=== PATIENT | male | born 1955 | race Caucasian/White ===

== ENCOUNTER → 2017-03-15 | Outpatient (REF) ==
[~2017-03-15] MED LIST: CIPRO 500MG TA500 MG PO; FISH OIL1 IU PO; FLAXSEED OIL1 CAP PO; FOLIC ACID PO; MVI PO; NO HOME MEDICATIONS; NORCO PO; VITAMIN C500 MG PO; VITAMIN E-400200 IU PO
== END ==
LOC: WSOH 17:45
DX: Z02.89 Encounter for other administrative examinations (principal)

== ENCOUNTER 2018-03-11 09:19 | Day surgery (SDC) | payer OTHER ==
[2007-03-09 06:21] VITALS: BP 122/89
[~2018-03-11] VITALS: Ht 182.9 cm; Wt 71.0 kg
[2018-03-11 10:32] VITALS: BP 131/89; PULSE 87; TEMP 98.6
[2018-03-11] MEDS ORDERED: VITAMIND3 5000 PO (10:41)
[2018-03-11 11:45] VITALS: BP 116/90; PULSE 80; TEMP 98.6
[2018-03-11 12:00] VITALS: BP 115/82; PULSE 80
[2018-03-11 12:15] VITALS: BP 112/76; PULSE 83
[2018-03-11 13:46] VITALS: BP 116/90; PULSE 84
== END 2018-03-11 12:30 | disposition home or self-care (01) ==
LOC: SDCO 09:19
DX: Z12.11 Encounter for screening for malignant neoplasm of colon (principal); K21.0 Gastro-esophageal reflux disease with esophagitis; G61.0 Guillain-Barre syndrome; Z86.010 Personal history of colon polyps; Z85.46 Personal history of malignant neoplasm of prostate; Z80.0 Family history of malignant neoplasm of digestive organs
CPT/HCPCS: J2250; J2405; J3010; J7030

== ENCOUNTER → 2020-03-14 | Outpatient (CLI) | payer OTHER ==
[~2020-03-14] MED LIST changes: +VITAMIND3 5000 PO
== END ==
LOC: COL.RAD 07:08
DX: M48.061 Spinal stenosis, lumbar region without neurogenic claudication (principal); M41.86 Other forms of scoliosis, lumbar region; M51.36 Other intervertebral disc degeneration, lumbar region

== ENCOUNTER 2021-02-10 20:45 | Emergency (ER) | payer OTHER, BC ==
[~2021-02-10] VITALS: Ht 182.9 cm; Wt 73.6 kg
[~2021-02-10 20:45] MED LIST changes: +MASON NATURAL2000 IU PO; -VITAMIND3 5000 PO
[2021-02-10 20:49] VITALS: TEMP 98.2
[2021-02-10] MEDS ORDERED: COZAAR 25MG25 MG/TAB PO (20:54)
[2021-02-10] MEDS ORDERED: MEGACE20 MG PO (20:55)
[2021-02-10 21:08] LABS: BASO % 0.5 % (0.0-2.0); EOS # 0.1 (0.0-0.7); EOS % 1.1 % (0-4.0); GRAN # 3.4 (1.4-6.5); GRAN % 58.9 % (42.2-75.2); HEMATOCRIT 38.8 % (42.0-52.0); HEMOGLOBIN 12.7 g/dl (13.5-18.0); LYMPH # 1.9 (1.2-3.4); LYMPH % 32.9 % (20.0-51.0); MEAN CELL VOLUME 94 fl (80.0-100.0); MEAN CORPUSCULAR HEMOGLOBIN 31 pg (27.0-31.0); MEAN CORPUSCULAR HGB CONC 33 g/dl (33.0-37.0); MEAN PLATELET VOLUME 10.1 fl (7.4-10.4); MONO # 0.4 (0.1-0.6); MONO % 6.2 % (1.7-9.3); PLATELET COUNT 273 K/mm3 (130-400); RED BLOOD COUNT 4.15 M/mm3 (4.20-5.60); REDCELL DISTRIBUTION WIDTH-CV 13.2 % (11.5-14.5)
[2021-02-10 21:19] LABS: ALANINE AMINOTRANSFERASE 40 U/L (4-49); ALBUMIN 4.1 gm/dL (3.5-5.0); ALKALINE PHOSPHATASE 59 U/L (50-136); ANION GAP 10 mmol/L (7-16); AST,SGOT 70 U/L (15-37); BILIRUBIN,TOTAL 0.3 mg/dL (0.0-1.0); BLOOD UREA NITROGEN 11 mg/dL (9-20); CALCIUM 9.4 mg/dL (8.4-10.2); CARBON DIOXIDE 20 mmol/L (22-30); CHLORIDE 109 mmol/L (98-107); CREATININE, serum 0.94 (0.66-1.25); GLUCOSE 126 mg/dL (74-106); POTASSIUM 3.8 mmol/L (3.4-5.0); SODIUM 139 mmol/L (137-145); TOTAL PROTEIN 7.2 gm/dL (6.4-8.2)
[2021-02-10 21:41] LABS: TROPONIN-I < 0.012 ng/mL (0.000-0.035)
[2021-02-10 23:14] VITALS: BP 148/80; PULSE 94
== END 2021-02-10 23:14 | disposition home or self-care (01) ==
LOC: COL.ER 20:45
PROVIDERS: Emergency Medicine Emergency Medical Services
DX: I95.9 Hypotension, unspecified (principal); R00.0 Tachycardia, unspecified
CPT/HCPCS: J7030

== ENCOUNTER 2021-03-07 05:44 | Day surgery (SDC) | payer OTHER ==
[2007-03-09 06:21] VITALS: BP 122/89
[~2021-03-07] VITALS: Ht 182.9 cm; Wt 74.4 kg
[~2021-03-07 05:44] MED LIST changes: +COZAAR 25MG25 MG/TAB PO; +MEGACE20 MG PO
[2021-03-07] MEDS ORDERED: TOPROL XL 25MG25 MG PO (06:06)
[2021-03-07 06:07] VITALS: BP 128/89; PULSE 80; TEMP 97.7
[2021-03-07 07:35] VITALS: BP 135/87; PULSE 66; TEMP 97.9
--- NOTE | 2021-03-07 07:35 | NUR ---
PATIENT TRANSPORTED PER CART FROM GI SUITE TO BAY 1 ACCOMPANIED BY TRANG RN. PATIENT AMBULATED FROM CART TO CHAIR WITH STEADY GAIT. WITH 1 ASSIST. MONITORS APPLIED. VSS ON ROOM AIR. PATIENT TALKING WITH STAFF. 0750 VSS ON ROOM AIR. PATIENT TOLERATES FOOD AND DRINK WITHOUT PROBLEMS. PATIENT TALKS WITH STAFF.
[2021-03-07 07:50] VITALS: BP 145/90; PULSE 60
[2021-03-07 08:05] VITALS: BP 141/83; PULSE 73
--- NOTE | 2021-03-07 08:05 | NUR ---
VSS ON ROOM AIR. IV SITE DC'D WITH CATHETER TIP INTACT. PRESSURE AND BANDAGE APPLIED. PATIENT DENIES NAUSEA AND DISCOMFORT. 808 DISCHARGE INSTRUCTIONS REVIEWED. QUESTIONS ANSWERED AND PATIENT VOICED UNDERSTANDING. PATIENT CHANGES INTO STREET CLOTHES. 08 PATIENT DISMISSED PER WHEEL CHAIR ACCOMPANIED BY AMB RN TO PRIVATE VECHILE DRIVEN BY FRIEND.
== END 2021-03-07 08:15 | disposition home or self-care (01) ==
LOC: SDCO 05:44
DX: K21.00 Gastro-esophageal reflux disease with esophagitis, without bleeding (principal); K52.832 Lymphocytic colitis; I10 Essential (primary) hypertension; R19.4 Change in bowel habit; R19.7 Diarrhea, unspecified; G61.0 Guillain-Barre syndrome; E55.9 Vitamin D deficiency, unspecified; Z90.79 Acquired absence of other genital organ(s); Z79.899 Other long term (current) drug therapy; Z20.822 Contact with and (suspected) exposure to COVID-19; Z80.0 Family history of malignant neoplasm of digestive organs; Z86.010 Personal history of colon polyps; Z85.46 Personal history of malignant neoplasm of prostate
CPT/HCPCS: J3010; J7030

== ENCOUNTER 2021-06-19 09:07 | Outpatient (CLI) | payer OTHER ==
[2007-03-09 06:21] VITALS: BP 122/89
[~2021-06-19] VITALS: Ht 182.9 cm; Wt 73.6 kg
[~2021-06-19 09:07] MED LIST changes: +TOPROL XL 25MG25 MG PO
[2021-06-19 09:30] VITALS: BP 156/91; PULSE 84; TEMP 99.4
[2021-06-19 10:00] VITALS: BP 119/61; PULSE 72
[2021-06-19 10:15] VITALS: BP 134/77; PULSE 81
[2021-06-19 10:30] VITALS: BP 144/84; PULSE 81
[2021-06-19 10:45] VITALS: BP 153/85; PULSE 81
[2021-06-19 11:00] VITALS: BP 144/85; PULSE 79
[2021-06-19] MEDS ORDERED: LUPRON DEPOT45 MG INJ (13:09)
[2021-06-19] MEDS ORDERED: MASON NATURAL2000 IU PO (13:10)
== END 2021-06-19 13:13 ==
LOC: EUO 09:07
DX: U07.1 COVID-19 (principal)
CPT/HCPCS: M0245

== ENCOUNTER → 2021-09-30 | Outpatient (CLI) | payer OTHER, BC ==
[~2021-09-30] MED LIST changes: +LUPRON DEPOT45 MG INJ
== END ==
LOC: COL.RAD 08-22 07:30
DX: R13.0 Aphagia (principal); Z85.46 Personal history of malignant neoplasm of prostate; Z90.79 Acquired absence of other genital organ(s)
CPT/HCPCS: Q9967